=== PATIENT | female | born 1965 | race African-American/Black ===

== ENCOUNTER 2022-07-26 19:45 | Emergency (ER) | payer OTHER ==
[2022-07-26 20:23] VITALS: BP 148/94; PULSE 88; RESP 16; TEMP 98.1; BMI 34.0
[2022-07-26] MEDS ORDERED: SODIUM CHLORIDE 0.9% 1000 ML INFUS.BAG IV ONE (20:55)
[2022-07-26 21:49] LABS: HEMATOCRIT 41.6 % (32.4-45.2); HEMOGLOBIN 14.8 G/dL (10.7-15.3); MCH 31.1 pg (25.7-33.7); MCHC 35.6 g/dl (32.0-36.0); MEAN CELL VOLUME 87.3 fl (80-96); MEAN PLT VOLUME 7.9 fl (7.5-11.1); RBC 4.76 10^6/uL (3.60-5.2); RDW 14.3 % (11.6-15.6); WHITE BLOOD COUNT 9.3 10^3/uL (4.0-10.8)
[2022-07-26 21:55] LABS: ALBUMIN 3.9 g/dl (3.4-5.0); BILIRUBIN,TOTAL 1.1 mg/dl (0.2-1); CALCIUM 9.5 mg/dl (8.5-10); CREATININE 0.6 mg/dl (0.55-1.3); TOT PROT 7.5 g/dl (6.4-8.2)
== END 2022-07-26 23:11 | disposition home or self-care (01) ==
LOC: FER 19:45
DX: R55 Syncope and collapse (principal)
CPT/HCPCS: 36415; 70450-TC; 80053; 84484; 85027; 85730; 86850; 86900; 86901; 93005; 99285-25